=== PATIENT | female | born 1950 | race Caucasian/White ===

== ENCOUNTER 2019-12-30 09:08 | Emergency (ER) | payer MEDICARE, SELFPAY ==
[2019-12-30 09:10] VITALS: BP 183/67; PULSE 112; RESP 20; TEMP 36.1; O2SAT 100
--- NOTE | 2019-12-30 09:29 | ED.SKABFB ---
HPI - Skin/Abscess/Foreign Bdy General Chief complaint: Skin/Abscess/Foreign Body Stated complaint: Rash Time Seen by Provider: 12/30/19 09:30 Source: patient History of Present Illness HPI narrative: Patient presents with an itchy rash to her right lower abdomen back and left arm. Patient denies any new soaps new detergents denies any change in lifestyle. Patient denies any shortness of breath no fever no cough no exposure to the coronavirus. Patient also presents with chronic wound to the ball of her right foot. Patient states she sees wound care on a regular basis for evaluation of wound but is concerned that she thinks it may be infected. No drainage no redness no tenderness to the area. complaint: rash Related Data Home Medications Medication Instructions Recorded Confirmed glipizide 5 mg PO DAILY 12/30/19 12/30/19 losartan 12/30/19 metformin 12/30/19 Allergies Allergy/AdvReac Type Severity Reaction Status Date / Time celecoxib [From Celebrex] Allergy Other Verified 12/30/19 09:29 Review of Systems Review of Systems: Narrative: CONSTITUTIONAL: Denies fever, chills, or sweats. EYES: Denies visual changes, redness, or discharge. ENT: Denies rhinorrhea, congestion, sore throat, or otalgia. CARDIOVASCULAR: Denies chest pain, palpitations, or edema. RESPIRATORY: Denies cough or dyspnea. GASTROINTESTINAL: Denies abdominal pain, nausea, vomiting, or diarrhea. GENITOURINARY: Denies dysuria or hematuria. SKIN: Itchy rash to right abdomen back and left forearm chronic wound to the ball of right foot MUSCULOSKELETAL: Denies back pain, joint pain, or myalgia. NEUROLOGIC: Denies headache, numbness, or weakness. PSYCHIATRIC: Denies anxiety or depression. [facility] Family History Family History Mother Hypertension Patient's mother is in good health Father Patient's father is in good health Sibling Patient's sister is in good health Patient's brother is in good health Social History Social History Smoking status: Never smoker Second hand tobacco smoke exposure: No Alcohol intake: never Comments At time of signature, agree with nursing past medical, surgical, social and family history. There is no relevant family history pertinent to the presenting complaint Exam Narrative: Exam Narrative: GENERAL: Well-appearing, well-nourished, and in no acute distress. HEAD: Normocephalic, atraumatic. EYES: PERRLA and EOMI. ENT: Nares clear, no rhinorrhea or epistaxis. Mucous membranes moist. NECK: Supple. CHEST: Clear to auscultation. No respiratory distress. HEART: Regular rate and rhythm. No murmur heard. Normal peripheral pulses. ABDOMEN: Soft, nontender, nondistended, normal active bowel sounds. EXTREMITIES: Normal range of motion. No edema. SKIN: Warm, dry, no rash. Contact dermatitis No induration fluctuance or drainage. No surrounding erythremia. No lesions and TTP. No specific pattern or dermatomal distribution. Several different stages with occasional scabbing and excoriation. Spares palms and soles. Findings consistent with contact dermatitis. To abdomen back and left forearm Chronic wound to the ball of right foot no induration no fluctuance no redness no tenderness no concern for cellulitis or abscess 1 cm area of healing wound to the ball of right foot. NEURO: No focal deficits. Alert and oriented x3. Silviano Coma Scale Eye Opening: Spontaneous 4 Silviano Coma Scale Motor: Obeys Commands 6 Silviano Coma Scale Verbal: Oriented 5 Silviano Coma Scale Total 15 Course Vital Signs Vital signs: Vital Signs Temperature 36.1 C L 12/30/19 09:10 Pulse Rate 112 H 12/30/19 09:10 Respiratory Rate 20 12/30/19 09:10 Blood Pressure 183/67 H 12/30/19 09:10 Pulse Oximetry 100 12/30/19 09:10 Temperature 36.1 C L 12/30/19 09:10 Pulse Rate 112 H 12/30/19 09:10 Respiratory Rate 20 0
== END 2019-12-30 09:35 | disposition home or self-care (01) ==
PROVIDERS: Emergency Provider Nurse Practitioner Family; PCP Family Medicine
DX: L25.9 Unspecified contact dermatitis, unspecified cause (principal); B36.9 Superficial mycosis, unspecified; S91.301A Unspecified open wound, right foot, initial encounter; X58.XXXA Exposure to other specified factors, initial encounter; I10 Essential (primary) hypertension; E11.9 Type 2 diabetes mellitus without complications
CPT/HCPCS: 99213; G0463

== ENCOUNTER 2020-01-15 17:43 | Emergency (ER) | payer MEDICARE, SELFPAY ==
[2020-01-15 17:52] VITALS: BP 158/70; PULSE 95; RESP 20; TEMP 36.7; O2SAT 100
--- NOTE | 2020-01-15 17:59 | ED.GENADULT ---
HPI - General Adult General Chief complaint: Skin/Abscess/Foreign Body Stated complaint: rash Time Seen by Provider: 01/15/20 17:59 Source: patient and RN notes reviewed Mode of arrival: ambulatory Limitations: no limitations History of Present Illness HPI narrative: 70-year-old female presents with complaints of diffused (anterior and posterior trunk and arms) raised red and intense itching rash for the past 14 days. Delaney says she was treated here at the [facility] recently and given Medrol vamsi without improvement. She believes rash and itching is worse. Denies new changes in personal hygiene products or laundry detergent. No new foods or medications. No swelling, burning, bleeding, or drainage. Denies fever, chills, headaches, weakness, fatigue, myalgia, facial swelling, or tongue swelling. Denies chest pain or dyspnea. Denies diarrhea, abdominal pain, nausea, and vomiting. Tolerating po intake well. Denies cough, rhinorrhea, congestion, and sore throat. Denies recent traveling. Denies concern for COVID-19 or exposures been home since [id number] order except for essential household needs, work, and return home. Some parts of this dictation were generated by voice recognition software and may contain typographical and/or grammatical inaccuracies. Related Data Home Medications Medication Instructions Recorded Confirmed glipizide 5 mg PO DAILY 12/30/19 12/30/19 losartan 12/30/19 metformin 12/30/19 glipizide mg 01/15/20 01/15/20 Allergies Allergy/AdvReac Type Severity Reaction Status Date / Time celecoxib [From Celebrex] Allergy Other Verified 12/30/19 09:29 Review of Systems Review of Systems: Narrative: CONSTITUTIONAL: Denies fever, chills, sweats. EYES: Denies visual changes, redness, discharge. ENT: Denies rhinorrhea, congestion, sore throat, otalgia. CARDIOVASCULAR: Denies chest pain, palpitations, edema. RESPIRATORY: Denies dyspnea, wheezing, cough. GASTROINTESTINAL: Denies abdominal pain, nausea, vomiting, diarrhea. GENITOURINARY: Denies dysuria, hematuria, abnormal discharge SKIN: Complains of diffused intense itching rash. Denies drainage. MUSCULOSKELETAL: Denies acute back pain, joint pain, or myalgia. NEUROLOGIC: Denies numbness or focal weakness. PSYCHIATRIC: Denies anxiety or depression. All other systems reviewed & are unremarkable except as noted in HPI and below. [facility] Past Medical History Medical History (Updated 01/16/20 @ 00:00 by Destini Valentin) Diabetes Hypertension Surgical History Surgical History (Updated 01/15/20 @ 18:22 by ASHU Meléndez) History of craniotomy History of hysterectomy History of removal of cyst fibroid cyst removed from RT breast Family History Family History Mother Hypertension Patient's mother is in good health Father Patient's father is in good health Sibling Patient's sister is in good health Patient's brother is in good health Social History Social History (Updated 01/15/20 @ 18:22 by ASHU Meléndez) Smoking status: Never smoker Second hand tobacco smoke exposure: No Alcohol intake: never Substance use: never Living arrangements: with family Occupation/Education: occupation Gender identity (if verbalized by the patient): Female Comments At time of signature, agree with nurse past medical, surgical, social, and family history. There is no relevant family history pertinent to the presenting complaint. Exam Narrative: Exam Narrative: GENERAL: This is a well-nourished, well-developed patient, in no apparent distress. Talking in full sentences without deficit and ambulate with steady gait without dyspnea. HEAD: normocephalic, atraumatic. EYES: PERRL. Sclera clear/white. Vision is grossly intact. THROAT: Mucous membranes moist, posterior pharynx clear. NECK: Neck supple, non-tender without lymphadenopathy, masses or thyromegal
== END 2020-01-15 18:24 | disposition home or self-care (01) ==
PROVIDERS: Emergency Provider Nurse Practitioner Family; PCP Family Medicine
DX: B86 Scabies (principal); E11.9 Type 2 diabetes mellitus without complications; I10 Essential (primary) hypertension; Z79.84 Long term (current) use of oral hypoglycemic drugs
CPT/HCPCS: 99213; G0463

== ENCOUNTER 2020-07-04 11:44 | Emergency (ER) | payer MEDICARE, SELFPAY ==
[2020-07-04 11:55] VITALS: BP 183/81; PULSE 99; RESP 14; TEMP 36.7; O2SAT 99
--- NOTE | 2020-07-04 11:59 | ED.DENTAL ---
HPI - Dental/Oral General Chief complaint: Dental/Oral Stated complaint: tooth pain Time Seen by Provider: 07/04/20 12:00 Source: patient and RN notes reviewed History of Present Illness HPI Narrative: Patient is a 70-year-old female who presents the urgent care with complaints of left lower dental pain and swelling. Patient states she woke up with the facial swelling this morning and does have a dentist appointment tomorrow. However, patient was advised by the dentist to get placed on an antibiotic prior to her appointment. Patient states that she does have a broken tooth that she believes is causing the pain. Patient states that she was using her at home supply of naproxen for pain relief. No other acute complaints. No acute distress noted. Patient aware of the plan of care. Some parts of this dictation were generated by voice recognition software and may contain typographical and/or grammatical inaccuracies. Related Data Home Medications Medication Instructions Recorded Confirmed glipizide 5 mg PO DAILY 12/30/19 07/04/20 amitriptyline 50 mg PO DAILY 07/04/20 07/04/20 gabapentin 1,200 mg PO BID 07/04/20 07/04/20 metformin 1,000 mg PO BID 07/04/20 07/04/20 Allergies Allergy/AdvReac Type Severity Reaction Status Date / Time celecoxib [From Celebrex] Allergy Other Verified 07/04/20 11:50 Review of Systems Review of Systems: Narrative: CONSTITUTIONAL: Denies fever, chills, or sweats. EYES: Denies visual changes, redness, or discharge. ENT: Denies rhinorrhea, congestion, sore throat, or otalgia. DENTAL: Reports of left lower dental pain and swelling/broken tooth CARDIOVASCULAR: Denies chest pain, palpitations, or edema. RESPIRATORY: Denies cough or dyspnea. GASTROINTESTINAL: Denies abdominal pain, nausea, vomiting, or diarrhea. GENITOURINARY: Denies dysuria or hematuria. SKIN: Denies rash or itching. MUSCULOSKELETAL: Denies back pain, joint pain, or myalgia. NEUROLOGIC: Denies headache, numbness, or weakness. All other systems reviewed are negative, except as documented in HPI. [facility] Past Medical History Medical History (Updated 07/04/20 @ 12:20 by ASHU Koehler) Diabetes Hypertension Surgical History Surgical History (Updated 01/15/20 @ 18:22 by SAHU Meléndez) History of craniotomy History of hysterectomy History of removal of cyst fibroid cyst removed from RT breast Social History Social History (Updated 01/15/20 @ 18:22 by ASHU Meléndez) Smoking status: Never smoker Second hand tobacco smoke exposure: No Alcohol intake: never Substance use: never Gender identity (if verbalized by the patient): Female Comments At the time of my signature, I reviewed and agree with the nursing past medical, surgical, social, and family history. There is no relevant family history pertinent to the patient complaint. Exam Narrative: Exam Narrative: GENERAL: This is a well-nourished, well-developed patient, in no apparent distress. HEAD: normocephalic, atraumatic. EYES: PERRL. Sclera clear/white. Vision is grossly intact. EARS: External ears normal, auditory canals clear and without drainage, TMs normal without perforation. Hearing grossly intact. NOSE: External nose normal with no obvious nasal discharge, nares without redness, no rhinorrhea. THROAT: Mucous membranes moist, posterior pharynx clear. DENTAL: Completely avulsed dentition to the lower left quadrant posterior to the first premolar with mild left lower facial swelling and moderate gum erythema NECK: Neck supple SKIN: warm, intact with no suspicious lesions or rash, good texture and turgor. NEURO: awake, alert, and oriented to person, place and time. There were no obvious focal neurologic abnormalities. EXTREMITIES: No clubbing, cyanosis, or edema. Course Vital Signs Vital signs: Vital Signs Temperature 98.1 F 07/04/20 11:55 Pulse Rate 99 07/04/20 11:55 Respiratory Rate 14 07/04/20 11:55 Blood Pressure
== END 2020-07-04 12:21 | disposition home or self-care (01) ==
PROVIDERS: Emergency Provider Nurse Practitioner Family; PCP Family Medicine
DX: K02.9 Dental caries, unspecified (principal); K04.7 Periapical abscess without sinus; S02.5XXA Fracture of tooth (traumatic), initial encounter for closed fracture; X58.XXXA Exposure to other specified factors, initial encounter; E11.9 Type 2 diabetes mellitus without complications; I10 Essential (primary) hypertension
CPT/HCPCS: 99213; G0463